=== PATIENT | female | born 1985 ===

== ENCOUNTER 2020-03-17 14:15 | Inpatient (IN) | payer OTHER ==
[~2020-03-17] VITALS: Ht 160 cm; Wt 68.0 kg
[~2020-03-17 14:15] MED LIST: FLONASE16 GM NS; GILTUSS TR TAB1 EACH PO; KETO10TA2 PO; NORFLEX100MG PO; SPRINTEC 28 DA1 EACH; ZYRTEC10 MG PO
[2020-04-09] MEDS ORDERED: PRENATAL TABLE1 EAC1 PO (06:26)
[2020-04-09] MEDS ORDERED: FOLIC ACID20 MG PO (06:26)
== END 2020-04-11 16:22 | disposition home or self-care (01) | DRG 807 ==
LOC: LDR 04-09 05:37 → OB/GYN 04-09 05:37
PROVIDERS: ADMIT Obstetrics & Gynecology Maternal & Fetal Medicine; ATTEND Obstetrics & Gynecology Maternal & Fetal Medicine
PROC: 10E0XZZ Delivery of Products of Conception, External Approach (ICD-10-PCS; principal; 2020-04-09)
PROC: 0W8NXZZ Division of Female Perineum, External Approach (ICD-10-PCS; 2020-04-09)
PROC: 4A1HXFZ Monitoring of Products of Conception, Cardiac Rhythm, External Approach (ICD-10-PCS; 2020-04-09)
DX: O26.893 Other specified pregnancy related conditions, third trimester (principal); Z37.0 Single live birth; Z67.41 Type O blood, Rh negative; Z3A.39 39 weeks gestation of pregnancy; Z20.822 Contact with and (suspected) exposure to COVID-19

== ENCOUNTER 2020-04-04 07:54 | Outpatient (CLI) | payer OTHER | END 2020-04-04 08:34 | disposition home or self-care (01) | LOC: NST 07:54 | PROVIDERS: ATTEND Obstetrics & Gynecology Maternal & Fetal Medicine | DX: Z34.83 Encounter for supervision of other normal pregnancy, third trimester (principal) ==

== ENCOUNTER 2020-04-07 12:57 | Outpatient (CLI) | payer OTHER | END 2020-04-07 13:39 | disposition home or self-care (01) | LOC: NST 12:57 | PROVIDERS: ATTEND Obstetrics & Gynecology | DX: Z34.83 Encounter for supervision of other normal pregnancy, third trimester (principal) ==

== ENCOUNTER 2022-10-01 11:33 | Day surgery (SDC) | payer OTHER ==
[~2022-10-01 11:33] MED LIST changes: +FOLIC ACID20 MG PO; +PRENATAL TABLE1 EAC1 PO
== END 2022-10-01 16:10 | disposition home or self-care (01) ==
LOC: CIR.AMB 11:33
PROVIDERS: ATTEND Obstetrics & Gynecology Maternal & Fetal Medicine
DX: O02.1 Missed abortion (principal); O72.2 Delayed and secondary postpartum hemorrhage; Z20.822 Contact with and (suspected) exposure to COVID-19